=== PATIENT | female | born 1985 | race Caucasian/White ===

== ENCOUNTER → 2023-09-24 14:52 | Outpatient (REF) | payer BC, SELFPAY ==
[2023-10-03 04:31] LABS: HPV, High Risk Not Detected; HPV, High Risk Source Cervical
== END ==
LOC: CPAP 14:52
PROVIDERS: ATTENDING PHYSICIAN Nurse Practitioner Family
DX: Z12.4 Encounter for screening for malignant neoplasm of cervix (principal); Z11.51 Encounter for screening for human papillomavirus (HPV); Z01.419 Encounter for gynecological examination (general) (routine) without abnormal findings
CPT/HCPCS: 87624; G0123

== ENCOUNTER → 2023-10-20 09:37 | Outpatient (REF) | payer BC, SELFPAY ==
[2023-10-20 10:30] LABS: % Basophils 0.4 % (0-2); % Eosinophils 1.7 % (0-6); % Immature Granulocytes 0.2 % (0-0.5); % Lymphocytes 29.5 % (20.5-51.1); % Monocytes 5.9 % (1.7-9.3); % Neutrophils 62.3 % (42.2-75.2); Absolute Eosinophils 0.1 10^3/uL (0-0.7); Absolute Lymphocytes 1.6 10^3/uL (1.2-3.4); Absolute Monocytes 0.3 10^3/uL (0.1-0.6); Absolute Neutrophils 3.4 10^3/uL (1.4-6.5); Hematocrit 39.7 % (37.0-47.0); Hemoglobin 13.8 g/dL (12.0-16.0); Mean Corp Hgb Conc. 34.8 g/dL (33.0-37.0); Mean Corpuscular Hgb 29.3 pg (27.0-31.0); Mean Corpuscular Volume 84.3 fL (81.0-99.0); Mean Platelet Volume 10.8 fL (7.4-10.4); Nucleated Red Blood Cells % 0 %; Platelet Count 189 10^3/uL (130-400); Red Blood Cell Count 4.71 10^6/uL (4.20-5.40); Red Cell Dist. Width 12.8 % (11.5-14.5); Urine Albumin Negative (Neg - Trace); Urine Bilirubin 1+ (Negative); Urine Character Clear (Clear); Urine Color Yellow; Urine Glucose Negative (Negative); Urine Ketone Trace (Negative); Urine Leukocyte Trace (Negative); Urine Nitrite Negative (Negative); Urine Occult Blood Negative (Negative); Urine Urobilinogen Negative (Neg - 1+); White Blood Cell Count 5.4 10^3/uL (4.8-10.8)
[2023-10-20 10:40] LABS: Urine Bacteria Few (Negative); Urine Mucus Few; Urine Red Blood Cell 0-2 /HPF (0-2); Urine Squamous Cell >30 /LPF (Few)
[2023-10-20 11:00] LABS: ALT (SGPT) 19 U/L (0-35); AST (SGOT) 24 U/L (14-36); Albumin 4.7 g/dl (3.5-5.0); Alkaline Phosphatase 64 U/L (38-126); Blood Urea Nitrogen 13 mg/dl (7-17); Calcium 9.6 mg/dl (8.4-10.2); Carbon Dioxide 27 mmol/L (22-30); Chloride 104 mmol/L (98-107); Glucose 85 mg/dl (70-99); HDL Cholesterol 68 mg/dl; LDL Cholesterol, Calculated 138 mg/dl; Potassium 4.1 mmol/L (3.5-5.1); Sodium 137 mmol/L (135-145); Total Bilirubin 0.6 mg/dl (0.2-1.3); Total Cholesterol 225 mg/dl (50-199); Total Protein 7.3 g/dl (6.3-8.2); Triglyceride 99 mg/dl (10-149); Very Low Density Lipoprotein 19 mg/dl (0-30); eGFR > 60.00
[2023-10-20 11:17] LABS: Vitamin D, 25-OH*** 44.4 ng/mL (30-80)
[2023-10-20 11:30] LABS: TSH 2.95 uIU/ml (0.47-4.68)
[2023-10-20 12:16] LABS: Glycohemoglobin (HgbA1c) 5.3 % (4.0-5.6)
[2023-10-22 02:39] LABS: Total T3 (Sendout) 91 ng/dL (80-200)
== END ==
LOC: REG 09:37
PROVIDERS: ATTENDING PHYSICIAN Family Medicine
DX: Z00.00 Encounter for general adult medical examination without abnormal findings (principal); Z86.32 Personal history of gestational diabetes; E03.8 Other specified hypothyroidism; E06.3 Autoimmune thyroiditis; Z82.49 Family history of ischemic heart disease and other diseases of the circulatory system; E55.9 Vitamin D deficiency, unspecified
CPT/HCPCS: 36415; 80053; 80061; 81003; 81015; 82306; 83036; 84439; 84443; 84480; 85025

== ENCOUNTER → 2023-11-14 10:32 | Outpatient (REF) | payer BC, SELFPAY ==
[2023-11-14 12:54] LABS: Iron 99 ug/dl (37-170)
[2023-11-14 13:03] LABS: Percent Saturation 28 % (20-50); Total Iron Binding Capacity 346 ug/dl (265-497)
[2023-11-14 13:14] LABS: Ferritin 21.8 ng/ml (6.24-137)
[2023-11-15 12:50] LABS: Lipoprotein a (Lp a) 101 mg/dL (<=29)
== END ==
LOC: RAD 10:32
PROVIDERS: ATTENDING PHYSICIAN Family Medicine
DX: E78.5 Hyperlipidemia, unspecified (principal); E03.9 Hypothyroidism, unspecified
CPT/HCPCS: 36415; 75571; 82728; 83540; 83550; 83695

== ENCOUNTER → 2023-11-28 14:36 | Outpatient (REF) | payer BC, SELFPAY | LOC: RAD 14:36 | PROVIDERS: ATTENDING PHYSICIAN Family Medicine | DX: E78.41 Elevated Lipoprotein(a) (principal) | CPT/HCPCS: 93880 ==

== ENCOUNTER → 2023-12-18 15:02 | Outpatient (REF) | payer BC, SELFPAY ==
[2023-12-19 19:13] LABS: Urine Albumin 1+ (Neg - Trace); Urine Bilirubin Negative (Negative); Urine Character Clear (Clear); Urine Color Yellow; Urine Glucose Negative (Negative); Urine Ketone Negative (Negative); Urine Leukocyte 2+ (Negative); Urine Nitrite Negative (Negative); Urine Occult Blood 3+ (Negative); Urine Urobilinogen Negative (Neg - 1+)
[2023-12-19 19:21] LABS: Urine White Cell 70-80 /HPF (0-5)
[2023-12-19 19:22] LABS: Urine Bacteria Few (Negative)
== END ==
LOC: CLAB 15:02
PROVIDERS: ATTENDING PHYSICIAN Advanced Practice Midwife
DX: Z11.3 Encounter for screening for infections with a predominantly sexual mode of transmission (principal); N76.0 Acute vaginitis
CPT/HCPCS: 81003; 81015; 81513; 87086; 87481; 87661

== ENCOUNTER → 2023-12-25 10:13 | Outpatient (REF) | payer BC, SELFPAY ==
[2023-12-26 14:37] LABS: Urine Albumin Negative (Neg - Trace); Urine Bilirubin Negative (Negative); Urine Character Clear (Clear); Urine Color Yellow; Urine Glucose Negative (Negative); Urine Ketone Negative (Negative); Urine Leukocyte 2+ (Negative); Urine Nitrite Negative (Negative); Urine Occult Blood Negative (Negative); Urine Urobilinogen Negative (Neg - 1+)
[2023-12-26 15:08] LABS: Urine Red Blood Cell 0-2 /HPF (0-2); Urine White Cell 30-40 /HPF (0-5)
[2023-12-26 15:09] LABS: Urine Bacteria Moderate (Negative)
== END ==
LOC: CLAB 10:13
PROVIDERS: ATTENDING PHYSICIAN Advanced Practice Midwife
DX: Z11.3 Encounter for screening for infections with a predominantly sexual mode of transmission (principal); B37.31 Acute candidiasis of vulva and vagina; N76.0 Acute vaginitis
CPT/HCPCS: 81003; 81015; 81513; 87086; 87481; 87491; 87591; 87661

== ENCOUNTER → 2023-12-25 10:58 | Outpatient (REF) | payer BC, SELFPAY ==
[2023-12-25 13:03] LABS: Hepatitis B Surface Antigen Negative (Negative)
[2023-12-25 13:21] LABS: Hepatitis C Antibody Negative (Negative)
[2023-12-25 14:36] LABS: HIV Combo Negative (Negative)
== END ==
LOC: REG 10:58
PROVIDERS: ATTENDING PHYSICIAN Advanced Practice Midwife; FAMILY PHYSICIAN Family Medicine
DX: Z11.3 Encounter for screening for infections with a predominantly sexual mode of transmission (principal)
CPT/HCPCS: 36415; 86780; 86803; 87340; 87389

== ENCOUNTER → 2024-02-13 09:23 | Outpatient (REF) | payer BC, SELFPAY | LOC: RCS 09:23 | PROVIDERS: ATTENDING PHYSICIAN Internal Medicine; FAMILY PHYSICIAN Family Medicine | DX: E78.41 Elevated Lipoprotein(a) (principal); E78.00 Pure hypercholesterolemia, unspecified; I65.23 Occlusion and stenosis of bilateral carotid arteries; I73.00 Raynaud's syndrome without gangrene; R00.2 Palpitations; R60.0 Localized edema; R07.9 Chest pain, unspecified | CPT/HCPCS: 93306 ==

== ENCOUNTER → 2024-02-20 10:26 | Outpatient (REF) | payer BC, SELFPAY | LOC: RCS 10:26 | PROVIDERS: ATTENDING PHYSICIAN Internal Medicine; FAMILY PHYSICIAN Family Medicine | DX: E78.41 Elevated Lipoprotein(a) (principal); E78.00 Pure hypercholesterolemia, unspecified; I65.23 Occlusion and stenosis of bilateral carotid arteries; I73.00 Raynaud's syndrome without gangrene; R00.2 Palpitations; R60.0 Localized edema; R07.9 Chest pain, unspecified | CPT/HCPCS: 93017 ==

== ENCOUNTER → 2024-03-04 09:30 | Outpatient (REF) | payer BC, SELFPAY ==
[2024-03-04 10:55] LABS: Iron 79 ug/dl (37-170)
[2024-03-04 10:59] LABS: CRP, Highly Sensitive 0.39 mg/L
[2024-03-04 11:04] LABS: Percent Saturation 22 % (20-50); Total Iron Binding Capacity 346 ug/dl (265-497)
[2024-03-04 11:29] LABS: Ferritin 30.6 ng/ml (6.24-137)
[2024-03-06 10:32] LABS: Lipoprotein a (Lp a) 110 mg/dL (<=29)
== END ==
LOC: REG 09:30
PROVIDERS: ATTENDING PHYSICIAN Internal Medicine; FAMILY PHYSICIAN Family Medicine
DX: E78.5 Hyperlipidemia, unspecified (principal); E03.9 Hypothyroidism, unspecified; E78.41 Elevated Lipoprotein(a); I65.23 Occlusion and stenosis of bilateral carotid arteries
CPT/HCPCS: 36415; 82728; 83540; 83550; 83695; 84443; 86141

== ENCOUNTER → 2024-03-05 10:23 | Outpatient (REF) | payer BC, SELFPAY | LOC: RAD 10:23 | PROVIDERS: ATTENDING PHYSICIAN Internal Medicine; FAMILY PHYSICIAN Family Medicine | DX: E78.41 Elevated Lipoprotein(a) (principal); E78.00 Pure hypercholesterolemia, unspecified; I65.23 Occlusion and stenosis of bilateral carotid arteries; I73.00 Raynaud's syndrome without gangrene; R00.2 Palpitations; R60.0 Localized edema; R07.9 Chest pain, unspecified | CPT/HCPCS: 75574; Q9967 ==

== ENCOUNTER → 2024-04-01 11:01 | Outpatient (REF) | payer BC, SELFPAY | LOC: HWRAD 11:01 | PROVIDERS: ATTENDING PHYSICIAN Obstetrics & Gynecology; FAMILY PHYSICIAN Family Medicine | DX: N83.209 Unspecified ovarian cyst, unspecified side (principal) | CPT/HCPCS: 76830; 76856 ==

== ENCOUNTER → 2024-04-16 10:03 | Outpatient (REF) | payer BC, SELFPAY ==
[2024-04-16 11:27] LABS: % Basophils 0.8 % (0-2); % Eosinophils 1.9 % (0-6); % Immature Granulocytes 0.3 % (0-0.5); % Lymphocytes 33.5 % (20.5-51.1); % Neutrophils 56.5 % (42.2-75.2); Absolute Eosinophils 0.1 10^3/uL (0-0.7); Absolute Lymphocytes 1.3 10^3/uL (1.2-3.4); Absolute Monocytes 0.3 10^3/uL (0.1-0.6); Absolute Neutrophils 2.1 10^3/uL (1.4-6.5); Hematocrit 37.7 % (37.0-47.0); Hemoglobin 12.6 g/dL (12.0-16.0); Mean Corp Hgb Conc. 33.4 g/dL (33.0-37.0); Mean Corpuscular Hgb 29.2 pg (27.0-31.0); Mean Corpuscular Volume 87.3 fL (81.0-99.0); Mean Platelet Volume 10.7 fL (7.4-10.4); Nucleated Red Blood Cells % 0 %; Platelet Count 163 10^3/uL (130-400); Red Blood Cell Count 4.32 10^6/uL (4.20-5.40); Red Cell Dist. Width 12.6 % (11.5-14.5); White Blood Cell Count 3.7 10^3/uL (4.8-10.8)
[2024-04-16 12:01] LABS: ALT (SGPT) 57 U/L (0-35); AST (SGOT) 42 U/L (14-36); Albumin 4.5 g/dl (3.5-5.0); Alkaline Phosphatase 72 U/L (38-126); Blood Urea Nitrogen 11 mg/dl (7-17); Calcium 9.5 mg/dl (8.4-10.2); Carbon Dioxide 27 mmol/L (22-30); Chloride 104 mmol/L (98-107); Glucose 82 mg/dl (70-99); HDL Cholesterol 69 mg/dl; LDL Cholesterol, Calculated 56 mg/dl; Potassium 4.2 mmol/L (3.5-5.1); Sodium 142 mmol/L (135-145); Total Bilirubin 0.4 mg/dl (0.2-1.3); Total Cholesterol 137 mg/dl (50-199); Total Protein 6.7 g/dl (6.3-8.2); Triglyceride 62 mg/dl (10-149); Very Low Density Lipoprotein 12 mg/dl (0-30); eGFR > 60.00
[2024-04-16 12:14] LABS: Free T4 1.02 ng/dl (0.78-2.19); Prolactin 10.3 ng/ml (3.0-18.6); Vitamin D, 25-OH*** 43.4 ng/mL (30-80)
[2024-04-16 12:27] LABS: TSH 0.24 uIU/ml (0.47-4.68)
[2024-04-16 14:36] LABS: Glycohemoglobin (HgbA1c) 4.9 % (4.0-5.6)
[2024-04-17 13:35] LABS: Varicella Zoster IgG (VZV) Positive
[2024-04-17 18:37] LABS: Hepatitis B Surface Antigen Negative (Negative)
[2024-04-17 18:55] LABS: Hepatitis C Antibody Negative (Negative)
[2024-04-17 19:19] LABS: Rubella Positive
[2024-04-18 11:53] LABS: Syphilis/T. pallidum Ab Reflex Negative (Negative)
[2024-04-18 13:21] LABS: HIV Combo Negative (Negative)
[2024-04-18 18:41] LABS: Thyroglobulin Antibodies <0.9 IU/mL (0.0-4.0); Thyroid Peroxidase Ab (TPO) 0.6 IU/mL (0.0-9.0)
[2024-04-19 00:27] LABS: Insulin, Random 6 uIU/mL
== END ==
LOC: REG 10:03
PROVIDERS: FAMILY PHYSICIAN Family Medicine
DX: E03.9 Hypothyroidism, unspecified (principal); E28.2 Polycystic ovarian syndrome; Z31.41 Encounter for fertility testing; Z11.59 Encounter for screening for other viral diseases; Z11.3 Encounter for screening for infections with a predominantly sexual mode of transmission; Z11.4 Encounter for screening for human immunodeficiency virus [HIV]; Z01.83 Encounter for blood typing; Z13.0 Encounter for screening for diseases of the blood and blood-forming organs and certain disorders involving the immune mechanism; Z13.21 Encounter for screening for nutritional disorder; Z00.00 Encounter for general adult medical examination without abnormal findings
CPT/HCPCS: 36415; 80053; 80061; 82306; 83036; 83525; 84146; 84439; 84443; 85025; 86376; 86430; 86762; 86780; 86787; 86800; 86803; 86850; 86900; 86901; 87340; 87389; 87491; 87591

== ENCOUNTER 2024-05-07 06:26 | Day surgery (SDC) | payer BC, SELFPAY | END 2024-05-07 15:45 | disposition home or self-care (01) | LOC: GI 06:26 | PROVIDERS: ATTENDING PHYSICIAN Internal Medicine | DX: K63.89 Other specified diseases of intestine (principal); K62.89 Other specified diseases of anus and rectum; K62.5 Hemorrhage of anus and rectum; R15.2 Fecal urgency | CPT/HCPCS: 45380; 88305; 88342 ==

== ENCOUNTER → 2024-05-19 11:59 | Outpatient (REF) | payer BC, SELFPAY ==
[2024-05-19 12:55] LABS: % Basophils 0.4 % (0-2); % Eosinophils 1.1 % (0-6); % Immature Granulocytes 0.5 % (0-0.5); % Lymphocytes 24.7 % (20.5-51.1); % Monocytes 5.5 % (1.7-9.3); % Neutrophils 67.8 % (42.2-75.2); Absolute Eosinophils 0.1 10^3/uL (0-0.7); Absolute Lymphocytes 2.1 10^3/uL (1.2-3.4); Absolute Monocytes 0.5 10^3/uL (0.1-0.6); Absolute Neutrophils 5.7 10^3/uL (1.4-6.5); Hematocrit 41.7 % (37.0-47.0); Hemoglobin 13.7 g/dL (12.0-16.0); Mean Corp Hgb Conc. 32.9 g/dL (33.0-37.0); Mean Corpuscular Hgb 28.8 pg (27.0-31.0); Mean Corpuscular Volume 87.6 fL (81.0-99.0); Mean Platelet Volume 10.8 fL (7.4-10.4); Nucleated Red Blood Cells % 0 %; Platelet Count 195 10^3/uL (130-400); Red Blood Cell Count 4.76 10^6/uL (4.20-5.40); Red Cell Dist. Width 12.3 % (11.5-14.5); White Blood Cell Count 8.4 10^3/uL (4.8-10.8)
[2024-05-19 13:15] LABS: Urine Albumin Negative (Neg - Trace); Urine Bilirubin Negative (Negative); Urine Character Clear (Clear); Urine Color Yellow; Urine Glucose Negative (Negative); Urine Ketone Negative (Negative); Urine Leukocyte Negative (Negative); Urine Nitrite Negative (Negative); Urine Occult Blood Negative (Negative); Urine Urobilinogen Negative (Neg - 1+)
[2024-05-19 13:43] LABS: ALT (SGPT) 37 U/L (0-35); AST (SGOT) 37 U/L (14-36); Alkaline Phosphatase 67 U/L (38-126); Blood Urea Nitrogen 16 mg/dl (7-17); Calcium 9.8 mg/dl (8.4-10.2); Carbon Dioxide 26 mmol/L (22-30); Chloride 101 mmol/L (98-107); Glucose 92 mg/dl (70-99); Potassium 4.4 mmol/L (3.5-5.1); Sodium 140 mmol/L (135-145); Total Bilirubin 0.5 mg/dl (0.2-1.3); Total Protein 7.5 g/dl (6.3-8.2); eGFR > 60.00
[2024-05-19 15:15] LABS: Urine Squamous Cell 26-30 /LPF (Few)
[2024-05-19 15:16] LABS: Urine Red Blood Cell 0-2 /HPF (0-2); Urine White Cell 0-2 /HPF (0-5)
[2024-05-19 19:47] LABS: Folate 14.5 ng/ml (2.76-20)
== END ==
LOC: REG 11:59
PROVIDERS: ATTENDING PHYSICIAN Surgery; FAMILY PHYSICIAN Family Medicine
DX: R10.2 Pelvic and perineal pain (principal); Z31.41 Encounter for fertility testing
CPT/HCPCS: 36415; 80053; 81003; 81015; 82746; 84144; 84443; 85025; 87086

== ENCOUNTER → 2024-07-26 09:22 | Outpatient (REF) | payer BC, SELFPAY ==
[2024-07-26 10:56] LABS: ALT (SGPT) 42 U/L (0-35); AST (SGOT) 33 U/L (14-36); Albumin 4.9 g/dl (3.5-5.0); Alkaline Phosphatase 78 U/L (38-126); Blood Urea Nitrogen 15 mg/dl (7-17); Calcium 9.6 mg/dl (8.4-10.2); Carbon Dioxide 27 mmol/L (22-30); Chloride 103 mmol/L (98-107); Glucose 85 mg/dl (70-99); HDL Cholesterol 59 mg/dl; LDL Cholesterol, Calculated 54 mg/dl; Potassium 4.4 mmol/L (3.5-5.1); Sodium 139 mmol/L (135-145); Total Bilirubin 0.7 mg/dl (0.2-1.3); Total Cholesterol 130 mg/dl (50-199); Total Protein 7.3 g/dl (6.3-8.2); Triglyceride 87 mg/dl (10-149); Very Low Density Lipoprotein 17 mg/dl (0-30); eGFR > 60.00
[2024-07-26 11:14] LABS: Vitamin D, 25-OH*** 51.3 ng/mL (30-80)
[2024-07-26 11:27] LABS: TSH 1.25 uIU/ml (0.47-4.68)
[2024-07-26 12:15] LABS: Glycohemoglobin (HgbA1c) 5.3 % (4.0-5.6)
[2024-07-27 17:54] LABS: Thyroglobulin Antibodies <0.9 IU/mL (0.0-4.0); Thyroid Peroxidase Ab (TPO) 0.4 IU/mL (0.0-9.0)
[2024-07-27 18:35] LABS: Insulin, Random 7 uIU/mL
[2024-07-28 01:49] LABS: tTG IgA Antibody <1.02 FLU (0.00-4.99)
[2024-07-28 04:39] LABS: IgA 169 mg/dl (70-400)
[2024-07-28 16:31] LABS: Endomysial IgA Antibody Titer <1:10 (<1:10)
== END ==
LOC: REG 09:22
PROVIDERS: ATTENDING PHYSICIAN Surgery; FAMILY PHYSICIAN Family Medicine; REFERRING PHYSICIAN Internal Medicine
DX: E06.3 Autoimmune thyroiditis (principal); K52.832 Lymphocytic colitis; Z83.79 Family history of other diseases of the digestive system; R74.8 Abnormal levels of other serum enzymes; E28.2 Polycystic ovarian syndrome
CPT/HCPCS: 36415; 80053; 80061; 82306; 82784; 83036; 83516; 83525; 84443; 86231; 86376; 86800

== ENCOUNTER → 2024-10-01 16:14 | Outpatient (REF) | payer BC, SELFPAY ==
[2024-10-01 17:18] LABS: Urine Albumin 1+ (Neg - Trace); Urine Bilirubin Negative (Negative); Urine Character Clear (Clear); Urine Color Yellow; Urine Glucose Negative (Negative); Urine Ketone Negative (Negative); Urine Leukocyte 2+ (Negative); Urine Nitrite Negative (Negative); Urine Occult Blood Negative (Negative); Urine Specific Gravity 1.025 (<1.030); Urine Urobilinogen Negative (Neg - 1+)
[2024-10-01 17:41] LABS: Urine Bacteria Few (Negative); Urine Red Blood Cell 0-2 /HPF (0-2); Urine White Cell 50-60 /HPF (0-5)
== END ==
LOC: REG 16:14
PROVIDERS: ATTENDING PHYSICIAN Surgery; FAMILY PHYSICIAN Family Medicine
DX: R30.0 Dysuria (principal)
CPT/HCPCS: 81003; 81015; 87086

== ENCOUNTER → 2024-10-22 12:01 | Outpatient (REF) | payer BC, SELFPAY | LOC: HWWDC 12:01 | PROVIDERS: ATTENDING PHYSICIAN Nurse Practitioner Family; FAMILY PHYSICIAN Family Medicine | DX: Z12.31 Encounter for screening mammogram for malignant neoplasm of breast (principal) | CPT/HCPCS: 77063; 77067 ==

== ENCOUNTER → 2025-02-24 07:46 | Outpatient (REF) | payer BC, SELFPAY ==
[2025-02-24 08:55] LABS: Hematocrit 38.5 % (37.0-47.0); Hemoglobin 12.6 g/dL (12.0-16.0); Mean Corp Hgb Conc. 32.7 g/dL (33.0-37.0); Mean Corpuscular Volume 85.4 fL (81.0-99.0); Nucleated Red Blood Cells % 0 %; Platelet Count 188 10^3/uL (130-400); Red Cell Dist. Width 12.7 % (11.5-14.5)
[2025-02-24 10:03] LABS: TSH 0.50 uIU/ml (0.47-4.68)
[2025-02-24 10:14] LABS: ALT (SGPT) 45 U/L (0-35); AST (SGOT) 36 U/L (14-36); Albumin 4.6 g/dl (3.5-5.0); Alkaline Phosphatase 52 U/L (38-126); Blood Urea Nitrogen 13 mg/dl (7-17); Calcium 9.1 mg/dl (8.4-10.2); Carbon Dioxide 26 mmol/L (22-30); Chloride 108 mmol/L (98-107); Glucose 95 mg/dl (70-99); HDL Cholesterol 63 mg/dl; LDL Cholesterol, Calculated 56 mg/dl; Potassium 4.4 mmol/L (3.5-5.1); Sodium 140 mmol/L (135-145); Total Protein 6.7 g/dl (6.3-8.2); Very Low Density Lipoprotein 10 mg/dl (0-30); eGFR > 60.00
[2025-02-24 10:37] LABS: Glycohemoglobin (HgbA1c) 5.4 % (4.0-5.6)
== END ==
LOC: REG 07:46
PROVIDERS: Internal Medicine; ATTENDING PHYSICIAN Surgery; FAMILY PHYSICIAN Family Medicine
DX: E03.9 Hypothyroidism, unspecified (principal); R73.03 Prediabetes
CPT/HCPCS: 36415; 80053; 80061; 83036; 84439; 84443; 85025

== ENCOUNTER → 2025-04-11 09:33 | Outpatient (REF) | payer BC, SELFPAY ==
[2025-04-11 10:46] LABS: Hematocrit 41.4 % (37.0-47.0); Hemoglobin 13.4 g/dL (12.0-16.0); Mean Corp Hgb Conc. 32.4 g/dL (33.0-37.0); Mean Corpuscular Volume 87.5 fL (81.0-99.0); Nucleated Red Blood Cells % 0 %; Platelet Count 183 10^3/uL (130-400); Red Cell Dist. Width 12.5 % (11.5-14.5)
[2025-04-11 10:54] LABS: INR 1.03; PT 13.8 Sec (11.4-14.6)
[2025-04-11 10:55] LABS: APTT 31.5 Sec (23.4-35.0)
[2025-04-11 11:10] LABS: ALT (SGPT) 40 U/L (0-35); AST (SGOT) 38 U/L (14-36); Albumin 4.6 g/dl (3.5-5.0); Alkaline Phosphatase 56 U/L (38-126); Blood Urea Nitrogen 12 mg/dl (7-17); Calcium 9.5 mg/dl (8.4-10.2); Carbon Dioxide 25 mmol/L (22-30); Chloride 107 mmol/L (98-107); Glucose 97 mg/dl (70-99); LDH 173 U/L (120-246); Potassium 4.1 mmol/L (3.5-5.1); Sodium 135 mmol/L (135-145); Total Protein 7.2 g/dl (6.3-8.2); eGFR > 60.00
[2025-04-11 11:14] LABS: C-Reactive Protein < 5.00 mg/L (0.0-10.00)
[2025-04-14 02:18] LABS: EBV-EA (D) Ab IgG 9.9 U/mL (<=8.9); EBV-NA IgG 237.0 U/mL (<=17.9); EBV-VCA IgG Antibodies 415.0 U/mL (<=17.9); EBV-VCA IgM Antibodies <10.0 U/mL (<=35.9)
[2025-04-14 02:24] LABS: ANA, IgG Reflex to HEp-2 Detected (None Detected)
[2025-04-14 02:57] LABS: Parvo B19 Ab, IgM 0.39 IV (<=0.89); Parvo Virus B19 Ab, IgG 0.39 IV (<=0.90)
== END ==
LOC: REG 09:33
PROVIDERS: ATTENDING PHYSICIAN Surgery; FAMILY PHYSICIAN Family Medicine
DX: R23.3 Spontaneous ecchymoses (principal)
CPT/HCPCS: 36415; 80053; 83516; 83615; 85025; 85610; 85652; 85730; 86038; 86140; 86160; 86644; 86645; 86663; 86664; 86665; 86747; 87389